=== PATIENT | male | born 1990 | race Caucasian/White ===

== ENCOUNTER 2020-10-14 04:28 | Emergency (ER) | payer SELFPAY ==
[~2020-10-14] VITALS: Ht 165.1 cm; Wt 54.5 kg
--- NOTE | 2020-10-14 04:38 | NUR ---
Pt brought in by EMS for severe lower back pain after pt sustained a mechanical trip and fall and hit his lower spine on a "rock" / step. Pt was walking around to "pass the time," until he catches a bus in the morning. [employer] the local [employer] called EMS due to pt lying on ground writhing in pain. Pt alert and oriented x4, GCS 15. Shaking and diaphoretic upon assessment and he attributes this to the pain. Pt has a hx of ankylosing spondylitis that he was dx w/x10 years ago and takes MS Contin and Oxycodone. Denies any drug or etoh tonight.
[2020-10-14] MEDS ORDERED: MORPHINE SULFATE 4 MG/ML, 1ML ONE (05:23)
[2020-10-14] MEDS ORDERED: SODIUM CHLORIDE FLUSH 10ML SYR IVF ONE (05:30)
[2020-10-14] MEDS ORDERED: PLEASE ENTER ALLERGIES MC SCH (05:30)
[2020-10-14] MEDS ORDERED: SODIUM CHLORIDE 0.9% 1,000ML IV ONE (05:30)
[2020-10-14] MEDS ORDERED: MORPHINE SULFATE 4 MG/ML, 1ML IVPush PRN (05:30)
[2020-10-14 05:35] LABS: BASOPHILS % (AUTO) 0 % (0-1); EOSINOPHILS % (AUTO) 0 % (1-7); LYMPHOCYTES % (AUTO) 13 % (22-44); MEAN CORPUSCULAR HEMOGLOBIN 29.4 pg (27.5-34.5); MEAN CORPUSCULAR HGB CONC 33.1 g/dL (33.2-36.2); MEAN PLATELET VOLUME 7.9 fL (7.4-10.4); MONOCYTES % (AUTO) 5 % (2-9); NEUTROPHILS % (AUTO) 82 % (42-75); PLATELET COUNT 279 x10^3/uL (130-400); RED BLOOD COUNT 4.76 x10^6/uL (4.38-5.82); RED CELL DISTRIBUTION WIDTH 13.4 % (9.4-14.8)
--- NOTE | 2020-10-14 05:45 | NUR ---
PATIENT REQUESTING ATIVAN STATING THE MORPHINE DIDNT WORK. MD LAW AWARE.
[2020-10-14 05:46] LABS: ALBUMIN 4.2 g/dL (3.4-5.0); ANION GAP 4 mmol/L (5-15); CALCIUM 9.4 mg/dL (8.5-10.1); CHLORIDE 106 mmol/L (98-107)
[2020-10-14 05:49] LABS: CREATININE 0.84 mg/dL (0.7-1.3)
[2020-10-14] MEDS ORDERED: KETAMINE 10 MG/ML, 20ML ONE (05:53)
--- NOTE | 2020-10-14 05:58 | NUR ---
PATIENT TO CT AT THIS TIME
[2020-10-14] MEDS ORDERED: KETAMINE 10 MG/ML, 20ML IV ONE (06:00)
--- NOTE | 2020-10-14 06:05 | NUR ---
PATIENT UNABLE TO TOLERATE CT PER STEAMFITTER DUE TO SHAKING/ WONT LAY FLAT. WILL UPDATE DR [place].
[2020-10-14] MEDS ORDERED: DIAZEPAM 5 MG/ML, 2ML ONE (06:23)
[2020-10-14] MEDS ORDERED: DIAZEPAM 5 MG/ML, 2ML IVPush ONE (06:30)
--- NOTE | 2020-10-14 06:45 | NUR ---
REPORT GIVEN TO DANIEL NEWELL
--- NOTE | 2020-10-14 06:55 | NUR ---
[facility] RPT REC'D AND ASSUMED PT CARE. PT TO CT WITH TECH TRANSPORT. STUDIES COMPLETED AND PT RTD TO ROOM W/O INCIDENT.
[2020-10-14 08:00] VITALS: BP 160/92
[2020-10-14] MEDS ORDERED: OXYcodone/APAP 7.5/325MG TABLET PO ONE (08:00)
--- NOTE | 2020-10-14 08:31 | NUR ---
MED ORDERED FROM PHARMACY.
--- NOTE | 2020-10-14 08:41 | NUR ---
PER PHARMACY THEY ARE GOING TO LOAD THE MED IN [facility].
[2020-10-14] MEDS ORDERED: OXYcodone/APAP 7.5/325MG TABLET ONE (08:46)
--- NOTE | 2020-10-14 08:52 | NUR ---
Patient/Caregiver given discharge instructions and they have confirmed that they understand the instructions. Patient ambulatory with steady gait. NAD, all questions answered appropriately, denies additional needs at this time. No personal belongings left in room after discharge. BUS PASS PROVIDED
[2020-10-14] MEDS ORDERED: OMNIPAQUE 350 MG/ML, 100ML BOTTLE ONE (10:32)
== END 2020-10-14 08:53 | disposition home or self-care (01) ==
LOC: ED 07:26
DX: G89.11 Acute pain due to trauma (principal); M54.5 Low back pain; F11.20 Opioid dependence, uncomplicated; X58.XXXA Exposure to other specified factors, initial encounter; Y93.89 Activity, other specified; Y92.89 Other specified places as the place of occurrence of the external cause; Y99.8 Other external cause status
CPT/HCPCS: 36415; 72131; 72170; 74177; 80048; 82040; 85025; 96361; 96374; 96375; 99285; J2270; J3360; J7030; Q9967

== ENCOUNTER 2020-11-21 23:04 | Inpatient (IN) | payer OTHER ==
[~2020-11-21] VITALS: Ht 170.2 cm; Wt 66.5 kg
--- NOTE | 2020-11-21 23:47 | NUR ---
pt wheeled back to room at this time. left index finger has an inch long lac from approx a week ago with hand swelling that has not spread to arm at this time. purulent drainage noted. pt is moaning due to discomfort. per pt sweatshirt cut off at this time. nataly hanley at for eval and poc. last meal was a cookie right before coming into ed. placed on spo2/bp/ecg monitoring. wctm. Patient is resting comfortably in bed. Bed in lowest, rails engaged, call light on lap. WCTM.
[2020-11-22] MEDS ORDERED: SODIUM CHLORIDE FLUSH 10ML SYR IVF ONE
[2020-11-22] MEDS ORDERED: MORPHINE SULFATE 4 MG/ML, 1ML IV PRN
[2020-11-22] MEDS ORDERED: LEVOFLOXACIN/PMX 750MG/150ML 150 ML IVPB ONE
[2020-11-22] MEDS ORDERED: VANCOMYCIN PER PHARMACY MC ONE
[2020-11-22] MEDS ORDERED: LEVOFLOXACIN/PMX 750MG/150ML 150 ML ONE (00:11)
[2020-11-22] MEDS ORDERED: DIPH,PERTUSS(ACELL),TET VAC/PF 0.5 ML IM-VACC ONE ×2 (00:11)
[2020-11-22] MEDS ORDERED: MORPHINE SULFATE 4 MG/ML, 1ML ONE ×2 (00:11→01:58)
[2020-11-22] MEDS ORDERED: VANCOMYCIN 1,400 MG in SODIUM CHLORIDE 0.9% 250 ML IV ONE (00:30)
[2020-11-22 00:33] LABS: BASOPHILS % (AUTO) 0 % (0-1); EOSINOPHILS % (AUTO) 0 % (1-7); LYMPHOCYTES % (AUTO) 8 % (22-44); MEAN CORPUSCULAR HEMOGLOBIN 29.4 pg (27.5-34.5); MEAN CORPUSCULAR HGB CONC 32.8 g/dL (33.2-36.2); MEAN PLATELET VOLUME 8.3 fL (7.4-10.4); MONOCYTES % (AUTO) 6 % (2-9); NEUTROPHILS % (AUTO) 85 % (42-75); PLATELET COUNT 241 x10^3/uL (130-400); RED BLOOD COUNT 4.52 x10^6/uL (4.38-5.82); RED CELL DISTRIBUTION WIDTH 13.3 % (9.4-14.8)
--- NOTE | 2020-11-22 00:34 | NUR ---
PT MEDICATED PER MAR, COVID SWAB OBTAINED AND WALKED TO LAB, NAD, WAITING FOR RAD/LAB RESULTS. SLIGHTLY MORE COMFORTABLE AFTER RECEIVING MEDICATIONS, DENIES ADDITIONAL QUESTIONS OR NEEDS, BED IN LOWEST, RAILS ENGAGED, CALL LIGHT ON LAP, WCTM.
[2020-11-22 00:42] LABS: ALANINE AMINOTRANSFERASE 20 U/L (12-78); ALBUMIN 2.9 g/dL (3.4-5.0); ANION GAP 4 mmol/L (5-15); CALCIUM 7.7 mg/dL (8.5-10.1); CHLORIDE 112 mmol/L (98-107); CREATININE 0.59 mg/dL (0.7-1.3)
[2020-11-22 00:43] LABS: ALKALINE PHOSPHATASE 62 U/L (45-117); BILIRUBIN,TOTAL 0.4 mg/dL (0.2-1.0); TOTAL PROTEIN 6.2 g/dL (6.4-8.2)
[2020-11-22] MEDS ORDERED: ONDANSETRON ODT 8 MG ONE (01:28)
[2020-11-22] MEDS ORDERED: POLYETHYLENE GLYCOL 17 GM PACKET PO PRN (01:30)
[2020-11-22] MEDS ORDERED: SODIUM CHLORIDE 0.9% 1,000 ML IV ONE ×2 (01:30)
[2020-11-22] MEDS: LEVOFLOXACIN/PMX 750MG/150ML 150 ML IV SCH (01:30)
[2020-11-22] MEDS ORDERED: SODIUM CHLORIDE FLUSH 10ML SYR IVF PRN (01:30)
[2020-11-22] MEDS ORDERED: VANCOMYCIN PER PHARMACY MC PRN (01:30)
[2020-11-22] MEDS ORDERED: LABETALOL 5MG/ML, 20ML IVPush PRN (01:30)
[2020-11-22] MEDS ORDERED: ONDANSETRON 2MG/ML, 2ML IVPush PRN (01:30)
[2020-11-22] MEDS ORDERED: MELATONIN 5 MG TABLET PO PRN (01:30)
--- NOTE | 2020-11-22 02:04 | NUR ---
BREAK RN: PT C/O 12/22 PAIN. PAIN MEDS ADMIN PER MAY.
--- NOTE | 2020-11-22 02:09 | NUR ---
BREAK RN: REPORT GIVEN TO VICENTE SANCHEZ. PT RTG TO ROOM 338
[2020-11-22 02:58] VITALS: BP 110/68
[2020-11-22] MEDS: ACETAMINOPHEN 500 MG TABLET PO SCH ×5 (03:43→21:42)
[2020-11-22] MEDS: KETOROLAC 30 MG/1 ML IV SCH ×5 (03:43→21:43)
[2020-11-22] MEDS: LACTATED RINGERS 1,000 ML IV SCH ×3 (03:50→21:50)
[2020-11-22 05:04] LABS: BASOPHILS % (AUTO) 0 % (0-1); EOSINOPHILS % (AUTO) 0 % (1-7); LYMPHOCYTES % (AUTO) 12 % (22-44); MEAN CORPUSCULAR HEMOGLOBIN 29.6 pg (27.5-34.5); MEAN CORPUSCULAR HGB CONC 33.2 g/dL (33.2-36.2); MEAN PLATELET VOLUME 8.1 fL (7.4-10.4); MONOCYTES % (AUTO) 6 % (2-9); NEUTROPHILS % (AUTO) 81 % (42-75); PLATELET COUNT 185 x10^3/uL (130-400)
[2020-11-22 05:12] LABS: ANION GAP 4 mmol/L (5-15); CHLORIDE 109 mmol/L (98-107); CREATININE 0.53 mg/dL (0.7-1.3)
[2020-11-22 08:12] VITALS: BP 118/79
[2020-11-22] MEDS ORDERED: VANCOMYCIN 1,200 MG in SODIUM CHLORIDE 0.9% 250 ML IV SCH (09:00)
[2020-11-22] MEDS: FAMOTIDINE 20 MG/2 ML IVPush SCH ×2 (09:10→21:43)
[2020-11-22] MEDS: VANCOMYCIN 1,200 MG in SODIUM CHLORIDE 0.9% 250 ML IV SCH (12:08)
[2020-11-22] MEDS: morphine SULFATE 10 MG/ML, 1ML IVPush PRN ×2 (12:09→21:43)
[2020-11-22 12:42] VITALS: BP 141/77
[2020-11-22] MEDS ORDERED: FENTANYL PF 100 MCG/2ML ONE ×3 (12:59→18:40)
[2020-11-22] MEDS ORDERED: MIDAZOLAM 1 MG/ML, 2ML ONE (12:59)
[2020-11-22] MEDS: OXYcodone IR 5MG TABLET PO SCH ×2 (14:15→19:00)
[2020-11-22] MEDS ORDERED: VANCOMYCIN 1,100 MG in SODIUM CHLORIDE 0.9% 250 ML IV SCH (15:00)
[2020-11-22] MEDS ORDERED: OXYcodone 5 MG/5 ML ORAL.SOL UDC ONE (18:24)
[2020-11-22] MEDS ORDERED: PROMETHAZINE 25 MG/ML, 1ML IVPush PRN (19:30)
[2020-11-22] MEDS ORDERED: OXYcodone 5 MG/5 ML ORAL.SOL UDC PO PRN (19:30)
[2020-11-22] MEDS ORDERED: HYDROcodone/APAP 7.5-325MG/15ML UDC PO PRN (19:30)
[2020-11-22] MEDS ORDERED: PROMETHAZINE 12.5 MG SUPP PR PRN (19:30)
[2020-11-22] MEDS ORDERED: HYDROmorphone 1 MG/ML, 1ML INJ IVPush PRN (19:30)
[2020-11-22] MEDS ORDERED: FENTANYL PF 100 MCG/2ML IV PRN (19:30)
[2020-11-22] MEDS ORDERED: MEPERIDINE/PF 25MG/0.5ML IVPush PRN (19:30)
[2020-11-22 19:50] VITALS: BP 116/73
[2020-11-23] MEDS: VANCOMYCIN 1,200 MG in SODIUM CHLORIDE 0.9% 250 ML IV SCH ×3 (00:05→19:50)
[2020-11-23] MEDS: OXYcodone IR 5MG TABLET PO SCH ×4 (01:17→19:49)
[2020-11-23] MEDS: LEVOFLOXACIN/PMX 750MG/150ML 150 ML IV SCH ×2 (01:19→02:11)
[2020-11-23] MEDS: ACETAMINOPHEN 500 MG TABLET PO SCH ×6 (02:07→23:12)
[2020-11-23] MEDS: KETOROLAC 30 MG/1 ML IV SCH ×6 (02:07→23:12)
[2020-11-23 02:16] VITALS: BP 102/69
[2020-11-23 07:46] VITALS: BP 120/78
[2020-11-23] MEDS: FAMOTIDINE 20 MG/2 ML IVPush SCH ×2 (07:53→19:49)
[2020-11-23] MEDS: morphine SULFATE 10 MG/ML, 1ML IVPush PRN ×4 (08:10→23:23)
[2020-11-23 12:24] VITALS: BP 125/76
[2020-11-23] MEDS: NICOTINE 14MG/24 HR PATCH.TD24 TD SCH (13:19)
[2020-11-23] MEDS ORDERED: PHARMACOKINETIC MONITORING MC PRN (13:30)
[2020-11-23 19:44] VITALS: BP 126/73
[2020-11-24] MEDS: OXYcodone IR 5MG TABLET PO SCH ×4 (01:38→19:40)
[2020-11-24 02:13] VITALS: BP 123/79
[2020-11-24] MEDS: ACETAMINOPHEN 500 MG TABLET PO SCH ×7 (02:15→22:38)
[2020-11-24] MEDS: LEVOFLOXACIN/PMX 750MG/150ML 150 ML IV SCH (02:58)
[2020-11-24] MEDS: KETOROLAC 30 MG/1 ML IV SCH ×6 (02:58→22:38)
[2020-11-24] MEDS: VANCOMYCIN 1,200 MG in SODIUM CHLORIDE 0.9% 250 ML IV SCH ×3 (04:30→20:37)
[2020-11-24 06:01] LABS: BASOPHILS % (AUTO) 0 % (0-1); EOSINOPHILS % (AUTO) 1 % (1-7); LYMPHOCYTES % (AUTO) 26 % (22-44); MEAN CORPUSCULAR HEMOGLOBIN 30.3 pg (27.5-34.5); MEAN CORPUSCULAR HGB CONC 33.9 g/dL (33.2-36.2); MEAN PLATELET VOLUME 8.7 fL (7.4-10.4); MONOCYTES % (AUTO) 7 % (2-9); NEUTROPHILS % (AUTO) 66 % (42-75); PLATELET COUNT 169 x10^3/uL (130-400); RED CELL DISTRIBUTION WIDTH 13.5 % (9.4-14.8)
[2020-11-24 06:06] LABS: ANION GAP 12 mmol/L (5-15); CHLORIDE 113 mmol/L (98-107)
[2020-11-24 06:07] LABS: CREATININE 0.55 mg/dL (0.7-1.3)
[2020-11-24 06:51] LABS: CALCIUM 8.3 mg/dL (8.5-10.1)
[2020-11-24] MEDS: FAMOTIDINE 20 MG/2 ML IVPush SCH ×2 (07:55→20:36)
[2020-11-24 10:46] VITALS: BP 117/79
[2020-11-24] MEDS: morphine SULFATE 10 MG/ML, 1ML IVPush PRN ×2 (11:54→17:36)
[2020-11-24] MEDS: NICOTINE 14MG/24 HR PATCH.TD24 TD SCH (13:44)
[2020-11-24 13:51] VITALS: BP 125/78
[2020-11-24 19:07] VITALS: BP 128/79
[2020-11-25 00:12] VITALS: BP 122/78
[2020-11-25] MEDS: OXYcodone IR 5MG TABLET PO SCH ×2 (01:43→08:23)
[2020-11-25] MEDS: LEVOFLOXACIN/PMX 750MG/150ML 150 ML IV SCH (01:43)
[2020-11-25] MEDS: ACETAMINOPHEN 500 MG TABLET PO SCH ×2 (02:06→06:05)
[2020-11-25] MEDS: VANCOMYCIN 1,200 MG in SODIUM CHLORIDE 0.9% 250 ML IV SCH (04:51)
[2020-11-25] MEDS: morphine SULFATE 10 MG/ML, 1ML IVPush PRN (06:11)
[2020-11-25] MEDS: FAMOTIDINE 20 MG/2 ML IVPush SCH (08:23)
[2020-11-25 08:30] VITALS: BP 125/76
[2020-11-25] MEDS ORDERED: OXYC5TAB98 PO (08:52)
[2020-11-25] MEDS ORDERED: LEVO500T8 PO (08:54)
== END 2020-11-25 09:55 | disposition home or self-care (01) | DRG 602 ==
LOC: ED 11-22 → 3N 11-22 02:33
PROVIDERS: ADMIT Internal Medicine; ATTEND Hospitalist
PROC: 3E1U38Z Irrigation of Joints using Irrigating Substance, Percutaneous Approach (ICD-10-PCS; principal; 2020-11-24)
DX: L03.114 Cellulitis of left upper limb (principal); U07.1 COVID-19; S61.211A Laceration without foreign body of left index finger without damage to nail, initial encounter; M45.9 Ankylosing spondylitis of unspecified sites in spine; F17.200 Nicotine dependence, unspecified, uncomplicated; F11.10 Opioid abuse, uncomplicated; X58.XXXA Exposure to other specified factors, initial encounter; W26.0XXA Contact with knife, initial encounter; Z59.0 Homelessness; Z63.8 Other specified problems related to primary support group; Y93.89 Activity, other specified; Y92.89 Other specified places as the place of occurrence of the external cause; Y99.8 Other external cause status
CPT/HCPCS: 36415; 80048; 80053; 80202; 83605; 85025; 87015; 87040; 87070; 87075; 87077; 87102; 87116; 87147; 87186; 87205; 87206; 87635; 90715; 93005; 99285; G0378; J1885; J1956; J2250; J3010; J3370; J2270; J7030; J7050; J7120